=== PATIENT | male | born 1970 | race Caucasian/White ===

== ENCOUNTER 2019-12-21 08:29 | Emergency (ER) | payer OTHER ==
[~2019-12-21] VITALS: Ht 195.6 cm; Wt 113.8 kg
[2019-12-21] MEDS ORDERED: ZYRTEC10 M5 PO (09:00)
[2019-12-21] MEDS ORDERED: SERTRALINE HCL100 MG PO (09:01)
[2019-12-21 09:04] LABS: ABSOLUTE NEUTROPHILS 3.5 thou/uL (1.4-8.2); BASOPHILS 0.8 % (0.0-2.0); EOSINOPHILS 8.4 % (0.0-3.0); HEMATOCRIT 44.2 % (42.0-52.0); LYMPHOCYTES 35.6 % (24.0-44.0); MCHC 33.9 g/dL (28.0-37.0); MCV 88.5 fL (80.0-100.0); MONOCYTES 5.1 % (1.0-8.0); PLATELET COUNT 283 thou/uL (150-400); POLYS 50.1 % (36.0-66.0); RDW 13.5 % (10.5-14.5)
[2019-12-21 09:13] LABS: ANION GAP 6 mmol/L (7-16); BUN 28 mg/dL (7-18); CALCIUM 8.8 mg/dL (8.5-10.1); CHLORIDE 101 mmol/L (98-107); CO2 28 mmol/L (21-32); CREATININE 1.4 mg/dL (0.7-1.3); GLUCOSE 157 mg/dL (74-106); POTASSIUM 3.8 mmol/L (3.5-5.1); SODIUM 135 mmol/L (136-145)
[2019-12-21 09:22] LABS: TROPONIN-I <0.06 ng/mL (<0.06)
[2019-12-21 09:33] VITALS: BP 107/70
--- NOTE | 2019-12-24 08:19 | EKG ---
[facility] [place] [address] ELECTROCARDIOGRAM REPORT Name: DARRIUS OLMSTEAD Room #: DEP [facility]..#: [id number] Admission: 12/21/19 Attend Phys: Discharge: 12/21/19 Date of : 70 Report #: [id number] THIS REPORT FOR: cc: Robin Santamaria MD, Neal A. MD Lundgren,Lemuel Dumont MD [facility] THIS REPORT FOR: //name// [facility] ED Test Date: 2019-12-21 Test Time: 08:31:38 Pat Name: DARRIUS OLMSTEAD Department: Room: Gender: Staffing Specialist: VENU : 1970 Requested By: Darrius Paul Order Number: [id number] MD: Lemuel Godwin Measurements Intervals Kerrick Rate: 62 P: 8 MO: 200 QRS: -58 QRSD: 118 T: 21 QT: 417 QTc: 424 Interpretive Statements Sinus rhythm Left anterior fascicular block Compared to ECG 08/09/1999 18:06:48 Early R wave progression no longer present Electronically Signed On 12-24-2019 8:17:19 CDT by Lemuel Godwin [email or web address] <ELECTRONICALLY SIGNED> By: Lemuel Godwin MD, [facility] 12/24/19816 0 0 Lemuel Godwin MD, [facility] /EPI
== END 2019-12-21 09:40 | disposition home or self-care (01) ==
LOC: ER 08:29
PROVIDERS: Emergency Medicine
DX: M54.2 Cervicalgia (principal); R07.9 Chest pain, unspecified; M62.830 Muscle spasm of back; R06.02 Shortness of breath; Z79.899 Other long term (current) drug therapy; Z91.040 Latex allergy status